=== PATIENT | male | born 1945 | race Caucasian/White ===

== ENCOUNTER → 2018-06-01 | Outpatient (CLI) | payer MEDICARE ==
--- NOTE | 2018-06-01 08:06 | US ---
EXAMINATION TYPE: US duplex aorta DATE OF EXAM: 06/01/2018 COMPARISON: NONE CLINICAL HISTORY: Z13.6 SCREENING FOR CARDIOVASCULAR DISORDER. EXAM MEASUREMENTS: Abdominal Aorta: Proximal: 2.7 x 2.3 cm Mid: 1.9 x 2.4 cm Distal: 1.9 x 2.6 cm Bifurcation: rt, 1.5 x 1.2 cm lt, 1.3 x 1.4 cm Calcified distally and into iliacs. Aorta is successfully scan through the bifurcation IMPRESSION: No ultrasound evidence for AAA.
== END | disposition home or self-care (01) ==
LOC: RADUSWWP 07:24
PROVIDERS: ATTEND Family Medicine
DX: Z13.6 Encounter for screening for cardiovascular disorders (principal)
CPT/HCPCS: 93979